=== PATIENT | female | born 1955 | race Caucasian/White ===

== ENCOUNTER 2018-07-11 13:44 | Outpatient (CLI) | payer OTHER ==
--- NOTE | 2018-07-11 16:12 | BD ---
BONE DENSITOMETRY USING DEXA: Date: 07/11/18 HISTORY: Postmenopausal screening for osteoporosis. FINDINGS: Lumbar Spine: BMD (g/cm2) L1 1.211 T-Score: 2.0 Z-Score: 3.5 L2 1.259 T-Score: 2.1 Z-Score: 3.7 L3 1.292 T-Score: 1.9 Z-Score: 3.6 L4 1.248 T-Score: 1.7 Z-Score: 3.5 L1-L4 1.253 T-Score: 1.9 Z-Score: 3.5 Femoral Neck: 0.790 T-Score: -0.5 Z-Score: 0.9 Total Femur: 0.939 T-Score: 0.0 Z-Score: 1.1 IMPRESSION: Normal bone mineral density. No evidence of osteopenia/osteoporosis. POS: OFF
--- NOTE | 2018-07-12 08:58 | MMO ---
Bilateral MAMMO Bilat Screen [facility]. CLINICAL HISTORY: Patient is 63 years old and is seen for screening. The patient has no family history of breast cancer. The patient has no personal history of cancer. VIEWS: The views performed were: bilateral craniocaudal and bilateral mediolateral oblique. FILMS COMPARED: The present examination has been compared to a prior imaging study performed at [facility] on 09/03/2010. This study has been interpreted with the assistance of computer-aided detection. MAMMOGRAM FINDINGS: The breasts are heterogeneously dense, which could obscure a lesion on mammography. There are no suspicious masses, calcifications or areas of architectural distortion. IMPRESSION: THERE IS NO MAMMOGRAPHIC EVIDENCE OF MALIGNANCY. A ROUTINE FOLLOW-UP MAMMOGRAM IN 1 YEAR IS RECOMMENDED. ACR BI-RADS Category 1 - Negative MAMMOGRAPHY NOTE: 1. A negative mammogram report should not delay a biopsy if a dominant of clinically suspicious mass is present. 2. Approximately 10% to 15% of breast cancers are not detected by mammography. 3. Adenosis and dense breasts may obscure an underlying neoplasm.
== END 2018-07-11 13:45 | disposition home or self-care (01) ==
LOC: BICMAMMO 13:44
PROVIDERS: ATTEND Family Medicine
DX: Z12.31 Encounter for screening mammogram for malignant neoplasm of breast (principal); Z13.820 Encounter for screening for osteoporosis
CPT/HCPCS: 77067; 77080

== ENCOUNTER 2019-02-15 12:16 | Outpatient (CLI) | payer OTHER ==
--- NOTE | 2019-02-15 12:44 | RAD ---
XR Chest Pa Lat STANDARD History: Abnormal finding of the lung field Comparison: Chest radiograph 2015 Findings: Lungs are clear. No pneumothorax or effusion. Cardiac silhouette and mediastinal contours a re within normal limits. No acute osseous abnormality. Impression: No acute intrathoracic abnormality.
--- NOTE | 2019-02-15 12:45 | RAD ---
XR Lumbar Spine 2 Or 3 View History: Spinal stenosis Comparison: None. Findings: 5 nonrib-bearing lumbar type vertebrae. Moderate degenerative disc space height loss at L5/ S1. Narrowing of the interspinous space L3-L5 with cortical sclerosis and subcortical cysts. Paraspinal soft tissues are unremarkable. Impression: Moderate degenerative changes lower lumbar spine. No acute fracture or malalignment.
--- NOTE | 2019-02-15 12:46 | RAD ---
XR Hip Lt 2-3 View History: Osteoporosis hip Comparison: None. Findings: No acute fracture or malalignment. Mild joint space narrowing. Small acetabular osteophyte formation. There are phleboliths in the pelvis. Impression: Mild-moderate degenerative changes left hip.
--- NOTE | 2019-02-15 12:46 | RAD ---
XR Hip Rt 2-3 View History: Osteoarthritis of hip Comparison: None. Findings: No acute fracture or malalignment. Mild joint space narrowing. Small acetabular osteophytes . Phleboliths in the pelvis. Right obturator ring is intact. Impression: Mild to moderate degenerative changes right hip.
== END 2019-02-15 12:17 | disposition home or self-care (01) ==
LOC: BICRAD 12:16
PROVIDERS: ATTEND Family Medicine
DX: M48.061 Spinal stenosis, lumbar region without neurogenic claudication (principal); M16.0 Bilateral primary osteoarthritis of hip; R91.8 Other nonspecific abnormal finding of lung field; M47.816 Spondylosis without myelopathy or radiculopathy, lumbar region
CPT/HCPCS: 71046; 72100

== ENCOUNTER 2021-02-12 16:22 | Outpatient (CLI) | payer MEDICARE, MEDICAID | END 2021-02-12 16:23 | disposition home or self-care (01) | LOC: BICMAMMO 16:22 | PROVIDERS: ATTEND Family Medicine | DX: Z12.31 Encounter for screening mammogram for malignant neoplasm of breast (principal); Z80.3 Family history of malignant neoplasm of breast; Z79.83 Long term (current) use of bisphosphonates | CPT/HCPCS: 77063; 77067 ==